=== PATIENT | female | born 1950 | race Caucasian/White ===

== ENCOUNTER 2023-02-24 09:23 | Emergency (ER) | payer MEDICARE, SELFPAY ==
[2023-02-24 09:30] VITALS: BP 131/64; PULSE 72; RESP 16; TEMP 36.4; O2SAT 99
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
== END 2023-02-24 10:03 | disposition home or self-care (01) ==
PROVIDERS: Emergency Provider Nurse Practitioner Family; PCP Internal Medicine
DX: T25.222A Burn of second degree of left foot, initial encounter (principal); X00.8XXA Other exposure to uncontrolled fire in building or structure, initial encounter; E78.00 Pure hypercholesterolemia, unspecified; I10 Essential (primary) hypertension; E10.9 Type 1 diabetes mellitus without complications
CPT/HCPCS: 10160; 99213; G0463

== ENCOUNTER 2023-03-06 11:31 | Emergency (ER) | payer MEDICARE, SELFPAY ==
[2023-03-06 11:41] VITALS: BP 117/77; PULSE 79; RESP 18; TEMP 36.5; O2SAT 99
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
== END 2023-03-06 12:10 | disposition home or self-care (01) ==
PROVIDERS: Emergency Provider Registered Nurse; PCP Internal Medicine
DX: T25.222D Burn of second degree of left foot, subsequent encounter (principal); X00 Exposure to uncontrolled fire in building or structure; E78.5 Hyperlipidemia, unspecified; I10 Essential (primary) hypertension; E10.9 Type 1 diabetes mellitus without complications
CPT/HCPCS: 99213; G0463

== ENCOUNTER 2023-06-18 12:33 | Emergency (ER) | payer MEDICARE, SELFPAY ==
--- NOTE | ~2023-06-18 | XR_ITS ---
Left Knee Technique: AP, lateral, and oblique views were obtained. Clinical History: Pain Findings: No fracture or dislocation is seen. Osseous alignment is anatomic. Joint spaces are preserv ed without degenerative or erosive change. Soft tissues are unremarkable. No joint effusion is seen. Impression: Unremarkable left knee radiographs. Reviewed, dictated and finalized at location . [facility] Impression: Unremarkable left knee radiographs.
--- NOTE | 2023-06-18 12:42 | ED.LOWEXIN ---
HPI - Extremity Injury (Lower) General Chief Complaint: Extremity Injury, Lower Stated Complaint: Left Knee injury Time Seen by Provider: 06/18/23 12:42 Source: patient Mode of arrival: ambulatory Limitations: no limitations History of Present Illness HPI Narrative: Charley is a 72-year-old female patient presenting to the clinic today with complaints of left knee pain. She reports she was sitting on a barstool eating lunch and when she got up she felt a pop in her left knee with instant pain. Rates her pain at 10/10 currently. Having pain and achiness over the left medial knee. Related Data Home Medications Medication Instructions Recorded Confirmed citalopram 20 mg tablet 20 mg PO DAILY 06/18/23 06/18/23 insulin NPH isoph U-100 human 100 See Rx Instructions .Route .COMPLEX 06/18/23 06/18/23 unit/mL (3 mL) subcutaneous pen (Novolin N FlexPen) insulin regular human 100 unit/mL See Rx Instructions .Route .COMPLEX 06/18/23 06/18/23 injection solution (Novolin R Regular U-100 Insulin) metformin 500 mg tablet,extended 500 mg PO POST-TRANSFUSION bid 06/18/23 06/18/23 release 24 hr rosuvastatin 40 mg tablet 40 mg PO DAILY 06/18/23 06/18/23 Allergies Allergy/AdvReac Type Severity Reaction Status Date / Time Sulfa (Sulfonamide Allergy Hives Verified 06/18/23 12:55 Antibiotics) Review of Systems Review of Systems: Pertinent positives per HPI. Patient denies any fever, chills, rash, headache, visual changes, dizziness, cough, runny nose, sore throat, shortness of breath, chest pain, palpitations, nausea, vomiting, diarrhea, constipation, abdominal pain, or any urinary issues. [facility] Past Medical History Medical History Hyperlipidemia Hypertension Type I diabetes mellitus Social History Social History Smoking status: Never smoker Gender identity (if verbalized by the patient): Female Comments At the time of my signature, I reviewed and agree with the nursing past medical, surgical, social, and family history. There is no relevant family history pertinent to the patient complaint. Exam Narrative: General: Well-developed, well nourished, in no apparent distress Head: Normocephalic, atraumatic. Cardio: Regular rate and rhythm, s1 and s2 normal, no murmur appreciated. Resp: Clear to auscultation bilaterally, no rhonchi, rales, wheezing or rubs. Musculoskeletal: No deformity,tender to palpation over the MCL, pain with full extension of the left knee over the MCL as well as valgus/varus testing, grossly normal range of motion, muscle strength strong and equal, peripheral pulse strong, no edema, no cyanosis, normal gait and station Course Course Emergency Course: Portions of this record may have been created with voice recognition software. Level of Care: Express Care Visit Vital Signs Vital signs: Vital signs reviewed MDM - Extremity Injury (Lower) MDM Narrative Medical decision making narrative: At the time of visit patient is resting comfortably on the exam table. X-ray of the left knee was performed and negative for any sign of fracture or malalignment. I suspect patient has an MCL sprain of the left knee. Supportive measures were discussed with the patient she voiced understanding discharge instructions and agrees to treatment plan. Return precautions reviewed. Differential Diagnosis Differential diagnosis: Likely acute internal derangement of knee and other (MCL sprain) Discharge Plan Discharge Clinical Impression: Knee MCL sprain Qualifiers: Encounter type: initial encounter Laterality: left Qualified Code(s): S83.412A - Sprain of medial collateral ligament of left knee, initial encounter Patient Disposition: Home, Self-Care Condition: Stable Instructions: Antibiotic Form, Knee Sprain (ED), Hinged Knee Brace (ED) Additional Instructions: X-ray
[2023-06-18 12:49] VITALS: BP 126/57; PULSE 92; RESP 18; TEMP 36.8; O2SAT 97
--- NOTE | 2023-06-18 13:02 | PC.NURSE ---
PT DECLINED WHEELCHAIR FOR COMFORT
== END 2023-06-18 13:20 | disposition home or self-care (01) ==
PROVIDERS: Emergency Provider Nurse Practitioner Family; PCP Internal Medicine
DX: S83.412A Sprain of medial collateral ligament of left knee, initial encounter (principal); X58.XXXA Exposure to other specified factors, initial encounter; E78.5 Hyperlipidemia, unspecified; I10 Essential (primary) hypertension; E10.9 Type 1 diabetes mellitus without complications
CPT/HCPCS: 73564; 99213; G0463

== ENCOUNTER 2023-06-27 12:23 | Emergency (ER) | payer MEDICARE, SELFPAY ==
[2023-06-27 12:53] VITALS: BP 134/80; PULSE 84; RESP 18; TEMP 36.3; O2SAT 97
--- NOTE | 2023-06-27 13:34 | PC.NURSE ---
Pt out in hallway asking how much longer until she sees SUCCESS [facility]. Pt informed that there are 2 other pt's waiting to be seen ahead of her. Pt states that she is going to leave, saying I'm waiting for Dr. Farah to call me back, so I'm just gonna go .
== END 2023-06-27 13:39 | disposition left against medical advice (07) ==
LOC: EXPBETH 12:27
PROVIDERS: Emergency Provider Registered Nurse; PCP Internal Medicine
DX: M25.562 Pain in left knee (principal)
CPT/HCPCS: 99199